=== PATIENT | female | born 1990 | race African-American/Black ===

== ENCOUNTER 2021-11-11 19:45 | Emergency (ER) | payer OTHER ==
[2021-11-11 19:56] VITALS: BP 115/73; PULSE 99; RESP 18; TEMP 98.1; BMI 30.1
[2021-11-11 21:30] LABS: BASO % 0.8 % (0-2.0); EOS % 1.3 % (0-4.5); HEMOGLOBIN 12.3 GM/dL (10.7-15.3); LYMPH % 29.9 % (8-40); MCH 28.5 pg (25.7-33.7); MCHC 32.3 g/dl (32.0-36.0); MEAN CELL VOLUME 88.4 fl (80-96); MEAN PLT VOLUME 7.3 fl (7.5-11.1); MONO % 8.8 % (3.8-10.2); NEUT % 59.2 % (42.8-82.8); PLATELET COUNT 307 10^3/uL (134-434); RDW 13.6 % (11.6-15.6); WHITE BLOOD COUNT 8.6 K/mm3 (4.0-10.0)
[2021-11-11 21:37] LABS: INR 1.03 (0.83-1.09); PROTHROMBIN TIME (PATIENT) 11.8 SEC (9.7-13.0)
[2021-11-11 21:39] LABS: ACTIVATED PTT 31.4 SECONDS (25.2-36.5)
[2021-11-11 21:50] LABS: BLOOD UREA NITROGEN 8.2 mg/dL (7-18); CALCIUM 8.8 mg/dL (8.5-10.1)
[2021-11-11 21:52] LABS: ALBUMIN 3.1 g/dl (3.4-5.0)
[2021-11-11 21:53] LABS: CREATININE 0.6 mg/dL (0.55-1.3)
[2021-11-11 21:54] LABS: BILIRUBIN,TOTAL 0.2 mg/dL (0.2-1); TOT PROT 6.5 g/dl (6.4-8.2)
[2021-11-11 23:53] LABS: EPI CELLS 18 /uL (0-25.1); HYALINE CASTS 1 /uL (0-3.1); URINE APPEARANCE CLEAR; URINE BACTERIA 116 /uL (0-1359); URINE BILIRUBIN NEGATIVE (NEGATIVE); URINE COLOR YELLOW; URINE GLUCOSE (UA) NEGATIVE (NEGATIVE); URINE KETONE NEGATIVE (NEGATIVE); URINE LEUK ESTERASE TRACE (NEGATIVE); URINE NITRITE NEGATIVE (NEGATIVE); URINE PROTEIN NEGATIVE (NEGATIVE); URINE RBC 4 /uL (0-23.9); URINE UROBILINOGEN 0.2 mg/dL (0.2-1.0); URINE WBC 3 /uL (0-25.8)
[2021-11-12] MEDS ORDERED: CEPHALEXIN MONOHYDRATE 500 MG CAPSULE (UD) PO ONE (00:03)
[2021-11-12] MEDS ORDERED: CEPHALEXIN MONOHYDRATE 500 MG CAPSULE (UD) ONE (00:36)
== END 2021-11-12 00:43 | disposition home or self-care (01) ==
LOC: JER 19:45
DX: O23.41 Unspecified infection of urinary tract in pregnancy, first trimester (principal); O26.851 Spotting complicating pregnancy, first trimester; N83.209 Unspecified ovarian cyst, unspecified side; Z3A.09 9 weeks gestation of pregnancy
CPT/HCPCS: 36415; 76817-TC; 80053; 81003; 84702; 85025; 85610; 85730; 86850; 86900; 86901; 99284-25

== ENCOUNTER 2023-03-15 17:31 | Emergency (ER) | payer OTHER ==
[2023-03-15 17:37] VITALS: BP 121/58; PULSE 77; RESP 18; TEMP 98; BMI 34.8
[2023-03-15] MEDS ORDERED: LIDOCAINE 4% PATCH TP ONE (18:10)
[2023-03-15] MEDS ORDERED: IBUPROFEN 600 MG TABLET (FP) PO ONE (18:10)
[2023-03-15] MEDS: LIDOCAINE 5% TOPICAL PATCH TP ONE (18:14)
[2023-03-15] MEDS: IBUPROFEN 600 MG TABLET (FP) PO ONE (18:14)
[2023-03-15] MEDS ORDERED: LIDOCAINE PATCH REMOVAL MC ONE (22:00)
== END 2023-03-15 18:16 | disposition home or self-care (01) ==
LOC: JERFT 17:31
DX: M54.2 Cervicalgia (principal); M54.6 Pain in thoracic spine; M54.50 Low back pain, unspecified; V49.40XA Driver injured in collision with unspecified motor vehicles in traffic accident, initial encounter
CPT/HCPCS: 99283-25

== ENCOUNTER 2024-02-22 11:24 | Emergency (ER) | payer OTHER ==
[2024-02-22 11:30] VITALS: BP 149/89; PULSE 79; RESP 20; TEMP 97.5; BMI 34.8
[2024-02-22 13:06] LABS: THROAT:GRP A STREP DETECTED (NOTDETECTED)
== END 2024-02-22 12:17 | disposition home or self-care (01) ==
LOC: JERFT 11:24
DX: J02.0 Streptococcal pharyngitis (principal); R09.81 Nasal congestion; R59.0 Localized enlarged lymph nodes; Z20.822 Contact with and (suspected) exposure to COVID-19
CPT/HCPCS: 0241U-QW; 87651; 99283-25

== ENCOUNTER 2024-07-08 15:50 | Emergency (ER) | payer OTHER ==
[2024-07-08 16:04] VITALS: RESP 20; TEMP 98.8; BMI 43.4
[2024-07-08] MEDS ORDERED: ALBUTEROL SO4 2.5/IPRATROPIUM 0.5 INH SOL 3 ML VIAL.NEB. NEB ONE (16:24)
[2024-07-08] MEDS: ALBUTEROL SO4 2.5/IPRATROPIUM 0.5 INH SOL 3 ML VIAL.NEB. NEB ONE (16:27)
[2024-07-08] MEDS ORDERED: ACETAMINOPHEN 325 MG TABLET (FP) ONE (16:28)
[2024-07-08] MEDS: ACETAMINOPHEN 325 MG TABLET (FP) PO ONE (16:31)
[2024-07-08 17:09] LABS: THROAT:GRP A STREP NOT DETECTED (NOTDETECTED)
[2024-07-08] MEDS ORDERED: predniSONE 20 MG TABLET (UD) ONE (17:59)
[2024-07-08] MEDS ORDERED: IBUPROFEN 400 MG TABLET (FP) PO ONE (17:59)
[2024-07-08] MEDS: ALBUTEROL SO4 2.5/IPRATROPIUM 0.5 INH SOL 3 ML VIAL.NEB. NEB SCH (18:05)
[2024-07-08] MEDS: IBUPROFEN 400 MG TABLET (FP) PO ONE (18:47)
[2024-07-08] MEDS: predniSONE 20 MG TABLET (UD) PO ONE (18:47)
[2024-07-08 18:56] VITALS: BP 130/75; PULSE 83
== END 2024-07-08 19:17 | disposition home or self-care (01) ==
LOC: JERFT 15:50
PROC: 3E0F7GC Introduction of Other Therapeutic Substance into Respiratory Tract, Via Natural or Artificial Opening (ICD-10-PCS; principal; 2024-07-08)
PROC: 3E0F7GC Introduction of Other Therapeutic Substance into Respiratory Tract, Via Natural or Artificial Opening (ICD-10-PCS; 2024-07-08)
PROC: 3E0F7GC Introduction of Other Therapeutic Substance into Respiratory Tract, Via Natural or Artificial Opening (ICD-10-PCS; 2024-07-08)
DX: R05.9 Cough, unspecified (principal); R06.02 Shortness of breath; J02.9 Acute pharyngitis, unspecified; R51.9 Headache, unspecified; R00.0 Tachycardia, unspecified; R07.89 Other chest pain; B34.9 Viral infection, unspecified
CPT/HCPCS: 0241U-QW; 71046-TC-FY; 84703; 87651; 93005; 93010; 94640; 99284-25